=== PATIENT | male | born 1990 | race Caucasian/White ===

== ENCOUNTER 2023-05-25 06:09 | Day surgery (SDC) | payer BC ==
[2023-05-24 13:29] VITALS: BMI 45.9
[2023-05-25] MEDS ORDERED: PROPOFOL 200 MG/20 ML VIAL ONE (07:38)
[2023-05-25] MEDS ORDERED: Lidocaine 1% PF 5 ML VIAL ONE (07:38)
== END 2023-05-25 09:10 | disposition home or self-care (01) ==
LOC: SDC 06:09
PROVIDERS: ATTEND Internal Medicine Gastroenterology
PROC: 0DBP8ZZ Excision of Rectum, Via Natural or Artificial Opening Endoscopic (ICD-10-PCS; principal; 2023-05-25)
PROC: 0DBN8ZZ Excision of Sigmoid Colon, Via Natural or Artificial Opening Endoscopic (ICD-10-PCS; principal; 2023-05-25)
DX: K63.5 Polyp of colon (principal); K51.50 Left sided colitis without complications; K21.9 Gastro-esophageal reflux disease without esophagitis
CPT/HCPCS: 88305; J2704